=== PATIENT | female | born 2005 | race Caucasian/White ===

== ENCOUNTER 2024-01-26 11:36 | Outpatient (AMB) | payer BC, SELFPAY ==
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
== END 2024-01-26 13:51 | disposition home or self-care (01) ==
LOC: HO.HOP 11:36
PROVIDERS: PCP Pediatrics; Visit Provider Clinical Nurse Specialist Psychiatric/Mental Health
DX: F42.2 Mixed obsessional thoughts and acts (principal); F33.0 Major depressive disorder, recurrent, mild
CPT/HCPCS: 99214

== ENCOUNTER → 2024-01-26 11:36 | Outpatient (BNVA) | payer BC, SELFPAY | PROVIDERS: PCP Pediatrics; Visit Provider Clinical Nurse Specialist Psychiatric/Mental Health ==